=== PATIENT | female | born 1945 | race Caucasian/White ===

== ENCOUNTER 2022-04-09 16:27 | Emergency (ER) | payer MEDICARE, OTHER ==
[~2022-04-09] VITALS: Ht 162.6 cm; Wt 79.4 kg
[2022-04-09] MEDS ORDERED: METF-441 PO (17:12)
[2022-04-09] MEDS ORDERED: MAGN200T5 PO (17:12)
[2022-04-09] MEDS ORDERED: MONT10TA22 PO (17:12)
[2022-04-09] MEDS ORDERED: GABA-532 PO (17:12)
[2022-04-09] MEDS ORDERED: INSU100V7 SQ (17:12)
[2022-04-09] MEDS ORDERED: IBUP-1957 PO (17:12)
[2022-04-09] MEDS ORDERED: ASPI81TA31 PO (17:12)
[2022-04-09] MEDS ORDERED: ONDA4TAB5 PO (17:12)
[2022-04-09] MEDS ORDERED: INSU100C4 SQ (17:12)
[2022-04-09] MEDS ORDERED: VITAMIN D3 IM (17:12)
[2022-04-09] MEDS ORDERED: DEXL60CA3 PO (17:12)
[2022-04-09] MEDS ORDERED: DICLOFENAC GEL TP (17:12)
[2022-04-09] MEDS ORDERED: METO-357 PO (17:12)
[2022-04-09] MEDS ORDERED: ROPI0.5T4 PO (17:12)
[2022-04-09] MEDS ORDERED: LEVO88TA5 PO (17:12)
--- NOTE | 2022-04-09 17:35 | NUR ---
Patient taken to CT.
[2022-04-09 17:37] LABS: *BILIRUBIN,URIN NEGATIVE (NEGATIVE); *COLOR,URINE YELLOW (YELLOW); *KETONES,URINE NEGATIVE (NEGATIVE); *UROBILINOGEN,URINE 0.2 E.U./dl (NORMAL); LEUKOCYTE ESTERASE ,URINE TRACE (NEGATIVE); NITRITE, URINE NEGATIVE (NEGATIVE); UGLUCOSE TRACE (NEGATIVE)
[2022-04-09 17:44] LABS: HEMATOCRIT 34.7 % (31.2-41.9); MEAN CORPUSCULAR HEMOGLOBIN 29.6 uug (24.7-32.8); MEAN CORPUSCULAR VOLUME 87.3 fL (75.5-95.3); PLATELET COUNT (AUTO) 224 K/uL (179-408)
[2022-04-09 17:52] LABS: *BLOOD, URINE TRACE (NEGATIVE)
[2022-04-09 17:53] LABS: *CLARITY,URINE HAZY (CLEAR)
[2022-04-09 18:06] LABS: CARBON DIOXIDE 30 mmol/L (21-32); CHLORIDE 104 mmol/L (98-107); CREATININE 0.8 mg/dL (0.6-1.3); GLUCOSE 89 mg/dL (74-106); POTASSIUM 3.7 mmol/L (3.5-5.1); UREA NITROGEN, BLOOD 14 mg/dL (7-18)
[2022-04-09 18:08] LABS: BACTERIA,URINE NONE SEEN /HPF (NONE SEEN); SQUAMOUS EPITHELIAL CELL,UR FEW /HPF (NONE SEEN)
[2022-04-09 18:16] LABS: ALANINE AMINOTRANSFERASE 27 U/L (14-59); ALKALINE PHOSPHATASE 195 U/L (50-136); ASPARTATE AMINOTRANSFERASE 22 U/L (15-37); BILIRUBIN,DIRECT 0.1 mg/dL (0.0-0.2); BILIRUBIN,TOTAL 0.6 mg/dL (0.2-1.0); TOTAL PROTEIN, SERUM 7.5 g/dL (6.4-8.2)
[2022-04-09 18:36] LABS: LIPASE 129 U/L (73-393)
--- NOTE | 2022-04-09 20:01 | NUR ---
Patient discharged to home in stable condition. Written and verbal after care instructions given. Patient verbalizes understanding of instructions. Stressed follow up or return to ER for worsening s/s.
[2022-04-09 20:06] VITALS: BP 132/72
== END 2022-04-09 19:50 | disposition home or self-care (01) ==
LOC: ER 16:27
DX: R10.32 Left lower quadrant pain (principal); R06.00 Dyspnea, unspecified; J98.11 Atelectasis; Z20.822 Contact with and (suspected) exposure to COVID-19; R19.02 Left upper quadrant abdominal swelling, mass and lump; E03.9 Hypothyroidism, unspecified; Z79.890 Hormone replacement therapy; C85.92 Non-Hodgkin lymphoma, unspecified, intrathoracic lymph nodes; M19.90 Unspecified osteoarthritis, unspecified site; Z79.84 Long term (current) use of oral hypoglycemic drugs; Z79.4 Long term (current) use of insulin; E11.9 Type 2 diabetes mellitus without complications
CPT/HCPCS: 36415; 71045; 83690; 84484; 85025; 93005; A4663